=== PATIENT | female | born 1955 | race Caucasian/White ===

== ENCOUNTER → 2024-11-17 | Day surgery (SDC) | payer MEDICARE ==
--- NOTE | 2024-11-17 11:27 | RAD REPORT ---
EXAMINATION: ULTRASOUND GUIDED VACUUM-ASSISTED LEFT BREAST CORE NEEDLE BIOPSY LEFT breast core needle biopsy; percutaneous, using ultrasound guidance. Image guided placement, metallic localization clip, percutaneous. Post Bx mammogram: None CLINICAL INDICATION:. N63.20 INFORMED CONSENT: The risks, benefits, alternatives, and potential complications of ultrasound guided vacuum-assisted LEFT breast biopsy were discussed with the patient. An informed consent sheet was signed. The risks include but are not limited to the following: bleeding, infection, vascular injury, organ injury, pneumothorax, allergic reaction, and the need for emergent surgery/procedures. BIOPSY TARGET: LEFT breast, Lateral approach. 12:00 2 cm hypoechoic mass. NEEDLE: 12 gauge Celero vacuum-assisted core biopsy needle, 2 cores. SEDATION: None. COMPLICATIONS: None. TECHNIQUE: Appropriate audible time out was performed. The skin was prepped and draped in the normal fashion. The soft tissues were anesthetized with lidocaine. Utilizing real-time ultrasound guidance, a vacuum-assisted core biopsy needle was placed into the breast location described with rem oval of tissue for pathology evaluation. Metallic clip was placed within the biopsied lesion under ultrasound guidance. Compression was held. Hemostasis was achieved. Sterile dressing was applied. Pat ient tolerated the procedure well without immediate complication. The technologist was in the room with the radiologist throughout the procedure. IMPRESSION: 1.Successful ultrasound guided vacuum-assisted core biopsy of the LEFT breast as described above. 2. Biopsy clip placed within the biopsied lesion.
== END ==
LOC: DS 09:25
PROVIDERS: ATTEND Surgery
PROC: 0HBU3ZX Excision of Left Breast, Percutaneous Approach, Diagnostic (ICD-10-PCS; principal; 2024-11-17)
DX: C50.812 Malignant neoplasm of overlapping sites of left female breast (principal); Z17.0 Estrogen receptor positive status [ER+]
CPT/HCPCS: 19083; 88305

== ENCOUNTER 2024-12-07 05:38 | Day surgery (SDC) | payer MEDICARE ==
[2024-12-05 09:10] LABS: Absolute Eosinophils 0.2 K/uL (0-0.5); Absolute Lymphocytes (CBC) 2.2 K/uL (0.7-4.9); Absolute Monocytes 0.6 K/uL (0.1-1.3); Absolute Neutrophil 6.1 K/uL (1.8-8.0); Basophils % 0.4 % (0-1.3); Eosinophils % 1.7 % (0-4.4); Hematocrit 40.5 % (36.0-45.0); Hemoglobin 13.4 g/dL (12.0-15.0); Lymphocytes % 24.5 % (15.3-44.8); MCH 30.2 pg (27.0-35.0); MCHC 33.1 g/dL (32.0-36.0); MCV 91.1 fL (80-100); MPV 8.3 fL (7.6-11.3); Monocytes % 6.6 % (3.3-12.3); Neutrophils % 66.8 % (41.7-73.7); Nucleated Red Blood Cells % 0.1 % (0-0); Platelets 243 thou/uL (152-406); RBC Red Blood Cell Count 4.45 M/uL (3.86-4.86); Red Cell Distribution Width 14.3 % (12.1-15.2)
[2024-12-05 09:22] LABS: Anion Gap 5.2 mEq/L (5.0-15.0); Potassium 4.2 mEq/L (3.5-5.1)
--- NOTE | 2024-12-05 12:07 | EKG ---
Test Date: 2024-12-05 Test Time: 09:24:23 Sampler Pickup: RISHI MEASUREMENT RESULTS: Intervals: Rate: 59 WY: 152 QRSD: 88 QT: 424 QTc: 419 [place]: P: 59 WY: 152 QRS: -9 T: 47 INTERPRETIVE STATEMENTS: Sinus bradycardia RSR' or QR pattern in V1 suggests right ventricular conduction delay Borderline ECG No previous ECG available for comparison Electronically Signed On 12-05-24 12:07:09 MARKETING SENIOR RECRUITER by Wilmar Morris
[2024-12-07] MEDS: Ringers Lactate 1,000 ML IV ONE ×2 (07:18→14:30)
[2024-12-07] MEDS ORDERED: LIDOCAINE 2% MPF 5 ML VIAL ONE (11:29)
[2024-12-07] MEDS ORDERED: dexAMETHasone 10 MG/ML VIAL ONE (11:29)
[2024-12-07] MEDS ORDERED: KETOROLAC 30 MG/ML INJ ONE (11:29)
[2024-12-07] MEDS ORDERED: propofoL 200 MG/20 ML VIAL IV ONE (11:29)
[2024-12-07] MEDS ORDERED: MIDAZOLAM HCL 2 MG/2 ML INJ ONE (11:29)
[2024-12-07] MEDS ORDERED: ROCURONIUM 50 MG/5 ML VIAL IV ONE (11:29)
[2024-12-07] MEDS ORDERED: ONDANSETRON 4 MG/2 ML VIAL ONE (11:29)
[2024-12-07] MEDS ORDERED: FENTANYL CITR 100 MCG/2 ML ONE ×2 (11:29→12:48)
[2024-12-07] MEDS: CEFAZOLIN SODIUM 1 GM/VIAL ONE (12:00)
[2024-12-07] MEDS ORDERED: GLYCOPYRROLATE 0.2 MG/ML SYR ONE ×2 (12:20→12:25)
[2024-12-07] MEDS ORDERED: EPHEDRINE SULF 50 MG/ML VIAL ONE (12:21)
[2024-12-07] MEDS: METHYLENE BLUE 1% 10 ML VIAL ONE (12:30)
[2024-12-07] MEDS: LIDOCAINE HCL/EPINEPHRINE 20 ML MDV ONE (12:33)
[2024-12-07] MEDS ORDERED: HYDROMORPHONE HCL 1 MG/ML INJ ONE (15:41)
--- NOTE | 2024-12-07 17:35 | P.OP ---
Preoperative diagnosis: Biopsy Proven LEFT Breast Invasive Ductal Carcinoma Postoperative diagnosis: Biopsy Proven LEFT Breast Invasive Ductal Carcinoma Primary procedure: LEFT Mastectomy with sentinel lymph node biopsy and axillary dissection Anesthesia: GETA Estimated blood loss: <20cc Specimen: LEFT Breast, LEFT axillary sentinel lymph nodes x 2, LEFT Axillary Contents Findings: Postive LEFT Axillary Lymph Node, unusual course of thoracodorsal nerve Complications: None Drain(s): ANGELA drain (7mm Flat) Transferred to: Recovery Room Condition: Good
[2024-12-07] MEDS: HYDROMORPHONE HCL 1 MG/ML INJ ONE ×2 (17:57→18:07)
[2024-12-07 19:36] VITALS: BP 117/65; TEMP 97.2
[2024-12-07 19:45] VITALS: O2SAT 97
--- NOTE | 2024-12-08 02:56 | OP ---
Date of Procedure: 12/07/2024 Surgeon: Carlos Traylor MD, Preoperative Diagnosis: Biopsy-proven left breast invasive ductal carcinoma. Postoperative Diagnosis: Biopsy-proven left breast invasive ductal carcinoma. Procedures: 1. Left mastectomy with sentinel lymph node biopsy. 2. Left axillary dissection. Anesthesia: General endotracheal. Estimated Blood Loss: Less than 20 cc. Specimens: 1. Left breast. 2. Left axillary sentinel lymph node x2. 3. Left axillary contents. Findings: Positive left axillary lymph nodes on frozen section necessitating axillary dissection and unusual course of her thoracodorsal nerve. Complications: None. Drains: A 7 mm flat ANGELA drain placed. Condition: The patient was transferred recovery room in good condition. Procedure In Detail: After informed consent was obtained, the patient was brought to the operating r oom. The patient earlier in the morning was in Radiology department where lymphoscintigraphy was per formed as well as placement of wires as the patient had originally wanted a lumpectomy, but we later agreed on proceeding with a mastectomy on the left breast. As such, the patient had a wire placed as well as lymphoscintigraphy performed today. She was prepped and draped in the usual sterile fashion . After adequate anesthesia was achieved, I injected methylene blue in the periareolar region and th e breast was massaged for approximately 5 minutes to ensure lymphatic uptake of the methylene blue. At this point, I had parked the patient's breast in an elliptical-type fashion listing slightly super iorly toward where the tumor was palpable in the 12 o'clock position of the breast to ensure that the skin would be removed in this area that was adjacent to the mass. I also premarked her inferior axi llary fold midline and other axillary contents and borders as well as the superior border at the clav icle. I then made the elliptical incision circumferentially around as described. I began by develop ing a superior flap first taking down using electrocautery to the superior extent was smooth without significant blood loss. I ultimately went to the clavicle at the superior aspect that came around to the lateral edge of the sternal border and then proceeded inferiorly to develop the inferior flap wi th same said dissection leaving thin flaps in place down to the [place] fascia. I ultimately dissecte d down to the confluence of the inferior mammary crease near the rectus muscle pectoralis junction. I then went laterally near the lateral border of the pectoralis major and ultimately removed the spec imen at this point after orientation stitches were placed, which was short superior long lateral. Af ter this was passed off, I irrigated the chest wall. Minimal hemostatic was required as the breast w as removed all the way down to the prepectoral fascia. I then packed the breast area and inspected f or hemostasis once again, which was achieved at this point, no additional hemostatic measures require d. I then proceeded to close the defect using 3-0 Vicryl suture in the deep dermal plane. The skin was closed with a 4-0 Monocryl in a running fashion, Dermabond placed over top. I then turned my att ention to the axillary contents and using the gamma probe, I inspected the area. All counts were rec orded at this point. The skin level in vivo, ex vivo, and specimen levels were all performed at this time. After I identified the area of greatest intensity, I made an incision following the hair of bello blackmon hairline in the area of left axilla down to the subcutaneous tissues and performed predominate magalie nt dissection as well as minimal electrocautery ultimately identifying a blue hot lymph node, which w as inspected at this point. I placed clips on the lymphatic channels feeding this and ultimately rem makeda this and sent off for pathologic examination. I then inspected the axillary field and found an additional hot lymph node of similar intensity, which was interestingly not near the previous lymph n ode. It was more inferior and medial than this lymph node and deeper. As such, I dissected down to this lymph node in a similar fashion, placed clips on the lymphatic channel and removed this lymph no de, sent off for pathologic examination. At this point, the area was irrigated with sterile water an d I waited the results, which came back as positive for cancer by the pathologist frozen section anal ysis and therefore I opted to proceed with the axillary dissection as I had discussed with the patien t preoperatively. I ultimately began at the border of the pectoralis major muscle dissecting down to the pectoralis minor and pectoralis major junction and came around ultimately identifying the axilla ry vein. The axillary vein had a small bifurcation approximately midportion to the distal third of t neymar axillary vein. I identified the vascular structures coming down inferiorly including the thoracod orsal neurovascular bundle. At this point, I came medially and inspected the fascia and found that t he long thoracic nerve was in appropriate anatomic position. I used a nerve stimulator to test this nerve which was intact at this point. Interestingly, the thoracodorsal vein was identified. However , the thoracodorsal nerve came more medially and swung down in a somewhat oblique orientation to meet the thoracodorsal vein about a cm and a half away from the border of the axillary vein. Therefore, the thoracodorsal neurovascular bundle carried on this direction and made a somewhat C swoop back fol lowing the normal course after that moment. I then swept back all tissue using predominantly blunt d issection with minimal electrocautery at times. I used the nerve stimulator to protect and ensure no nerve injuries were appreciated throughout this portion of the procedure. I swept back all level 1 and [address] down and palpated level 3 nodes which were found to be nonpathologic in palpa tion. There were some firm lymph nodes palpated on the chest wall, which were removed in its entiret y. In addition, as I dissected laterally beyond the thoracodorsal neurovascular bundle, I palpated a single large lymph node just beyond the bifurcation of the axillary vein as described. This was carlos en out with meticulous dissection as well and sent off en bloc with the specimen as well connected. After I cleaned the axillary contents, I cleaned from the axillary vein superiorly to the chest wall and serratus/pectoralis muscle protecting the long thoracic nerve. I took out all the tissue all the way to the subscapularis muscle and to the latissimus dorsi and swept down ultimately removing all t his abnormal tissue and ligated this structures at this point using electrocautery or LigaSure device . I then sent it off for pathologic examination. Clips were left in place on the lymphatic channels as they were encountered and also to be used as fiducial markers on the areas of consideration. The re were 2 branch vessels off the axillary vein, which were individually ligated using clips and LigaS ure device. The thoracodorsal neurovascular bundle was protected throughout the entire procedure. I then at this point, irrigated the area and suctioned out to completely dry. No hemostatic measures required. I then used the nerve stimulator and tested the thoracodorsal nerve, which was found to be intact and functional as well as the long thoracic nerve at the end of the procedure. At this point , I brought out a 7 mm flat ANGELA drain through a separate stab incision inferior to the axilla and left the 7 mm ANGELA drain in the axilla. At this point, the area was copiously irrigated once again and dri ed appropriately and I then closed the deep dermal plane using interrupted 3-0 Vicryl sutures and ski n was closed with a 4-0 Monocryl in a running fashion. Dermabond placed over top. The patient shivani ated the procedure without incident or complication, transferred back in good condition. All counts were correct at the end of the case. ARMAND/SUSAN Voice ID: [id number] Report ID: [id number]
--- NOTE | 2024-12-08 07:36 | RAD REPORT ---
PROCEDURE: Lymphoscintigraphy of the left breast HISTORY: left breast sentinel lymph node biopsy AGENT: 275 uCi of LymphAMDLek. TECHNIQUE: The breast was prepped with alcohol in the periareolar region. The radiopharmaceutical was injected i n the left breast. Immediate imaging shows good radiopharmaceutical localization. IMPRESSION: Technically successful left lymphoscintigraphy injections as detailed.
--- NOTE | 2024-12-08 07:49 | RAD REPORT ---
Brst,Preop NL Wire Init w/Guid CLINICAL INDICATION: Female 69 years old. BREAST MASS,NEEDLE LOC INFORMED CONSENT: The risk, benefits, alternatives and potential complications of sonographically wendy ded breast needle localization were discussed with the patient. An informed consent sheer was signed. The risks include but are not limited to the following: bleeding, infection, vascular injury, organ injury, pneumothorax, allergic reaction, and the need for emergent surgery/procedures, needle dislocation. [id number]. SEDATION: None LOCALIZATION SITE: Left breast mass at 12:00 approximately 2 finger breadths from nipple WIRE: 5 cm Kopans wire needle localization device, Lateral approach. COMPLICATION: None. FINDINGS: Appropriate audible time out was performed. The skin was prepped in the normal fashion. The soft tissues were anesthetized with lidocaine. Utilizing ultrasound guidance, a localization device was placed into the location described above. The localization device was deposited at the holly ropriate site in the Left breast as described above. Dressing was applied after the procedure. The patient tolerated the procedure well without immediate complication. IMPRESSION: Successful placement of Left breast localizer device as described above. Specimen radiograph is rishabh mmended
--- NOTE | 2024-12-08 07:50 | RAD REPORT ---
Breast Pre Op Wire Additional CLINICAL INDICATION: Female 69 years old. NDL LOC 2 INFORMED CONSENT: The risk, benefits, alternatives and potential complications of sonographically wendy ded breast needle localization were discussed with the patient. An informed consent sheer was signed. The risks include but are not limited to the following: bleeding, infection, vascular injury, organ injury, pneumothorax, allergic reaction, and the need for emergent surgery/procedures, needle dislocation. [id number]. SEDATION: None. LOCALIZATION SITE: Left breast lesion at approximately 12:00 but one finger breadths from the nipple. WIRE: 7 cm Kopans wire needle localization device, Lateral approach. COMPLICATION: None. FINDINGS: Appropriate audible time out was performed. The skin was prepped in the normal fashion. The soft tissues were anesthetized with lidocaine. Utilizing ultrasound guidance, a localization device was placed into the location described above. The localization device was deposited at the holly ropriate site in the Left breast as described above. Dressing was applied after the procedure. The patient tolerated the procedure well without immediate complication. IMPRESSION: Successful placement of Left breast localizer device as described above. Specimen radiograph is rishabh mmended
== END 2024-12-07 19:49 | disposition home or self-care (01) ==
LOC: OR 05:38
PROVIDERS: ATTEND Surgery
PROC: 07T60ZZ Resection of Left Axillary Lymphatic, Open Approach (ICD-10-PCS; 2024-12-07)
PROC: 0HTU0ZZ Resection of Left Breast, Open Approach (ICD-10-PCS; principal; 2024-12-07 12:00)
DX: C50.912 Malignant neoplasm of unspecified site of left female breast (principal); C77.3 Secondary and unspecified malignant neoplasm of axilla and upper limb lymph nodes; Z17.0 Estrogen receptor positive status [ER+]
CPT/HCPCS: 19307; 93005; 85025; 80048; 36415; 88331; 88332; 88307 ×2; 19286; 19285; 78195; J2704; J2003; J2250; J3010 ×2; J1100; J1171 ×3; J2405; J7120 ×2; J0690; A9520; 88333; 88334

== ENCOUNTER 2025-01-04 11:37 | Day surgery (SDC) | payer MEDICARE ==
[2025-01-04 11:49] LABS: Absolute Eosinophils 0.1 K/uL (0-0.5); Absolute Lymphocytes (CBC) 2.3 K/uL (0.7-4.9); Absolute Monocytes 0.6 K/uL (0.1-1.3); Basophils % 0.3 % (0-1.3); Hemoglobin 12.8 g/dL (12.0-15.0); Lymphocytes % 25.7 % (15.3-44.8); MCH 30.4 pg (27.0-35.0); MCHC 33.8 g/dL (32.0-36.0); MCV 89.9 fL (80-100); MPV 7.9 fL (7.6-11.3); Monocytes % 6.7 % (3.3-12.3); Neutrophils % 66.3 % (41.7-73.7); Platelets 237 thou/uL (152-406); RBC Red Blood Cell Count 4.23 M/uL (3.86-4.86); Red Cell Distribution Width 13.8 % (12.1-15.2)
[2025-01-04 12:00] LABS: Anion Gap 7.2 mEq/L (5.0-15.0); Potassium 4.2 mEq/L (3.5-5.1)
[2025-01-04] MEDS: Ringers Lactate 1,000 ML IV ONE (12:50)
[2025-01-04] MEDS ORDERED: propofoL 200 MG/20 ML VIAL IV ONE (13:18)
[2025-01-04] MEDS ORDERED: LIDOCAINE 2% MPF 5 ML VIAL ONE (13:18)
[2025-01-04] MEDS ORDERED: ONDANSETRON 4 MG/2 ML VIAL ONE (13:18)
[2025-01-04] MEDS ORDERED: MIDAZOLAM HCL 2 MG/2 ML INJ ONE (13:19)
[2025-01-04] MEDS ORDERED: FENTANYL CITR 100 MCG/2 ML ONE (13:19)
[2025-01-04] MEDS ORDERED: NS 0.9% VIAL 20 ML ONE (13:21)
[2025-01-04] MEDS: CEFAZOLIN SODIUM 2 GM/VIAL ONE (13:30)
[2025-01-04] MEDS: LIDOCAINE HCL/EPINEPHRINE 20 ML MDV ONE (14:06)
[2025-01-04] MEDS: HEPARIN 5000 UNIT/ML 1 ML VIAL ONE (14:07)
[2025-01-04] MEDS: NA CHLORIDE 0.9% 50 ML ONE (14:08)
[2025-01-04] MEDS ORDERED: EPHEDRINE SULF 50 MG/ML VIAL ONE (14:10)
--- NOTE | 2025-01-04 14:33 | RAD REPORT ---
EXAM: Fluoroscopy use, Fluoroscopy <1 Hour HISTORY: PORT A CATH PLACEMENT COMPARISON: None FINDINGS: Multiple images were sent to PACS, during a fluoroscopically guided procedure. No radiologi st was involved in protocoling or performance of the study, and no radiologist was present for the duration of the procedure. No interpretation of the saved images will be provided. Total fluoroscopy time: 0.1 min. IMPRESSION: Documentation of fluoroscopy use as above. Transcribed Date/Time: 01/04/2025 2:33 PM
--- NOTE | 2025-01-04 14:33 | P.OP ---
Preoperative diagnosis: Need for Chemotherapy Access Postoperative diagnosis: Need for Chemotherapy Access Primary procedure: Placement of Chemotherapy Port Secondary procedure: Ultrasound and Flouroscopic Guidance Used Anesthesia: GETA + Local Estimated blood loss: <10cc Specimen: None Findings: Cath @ SVC Complications: None Implants: Port a Cath Transferred to: Recovery Room Condition: Good
[2025-01-04] MEDS: HYDROMORPHONE HCL 0.5 MG/0.5 ML INJ ONE (14:54)
--- NOTE | 2025-01-04 15:06 | RAD REPORT ---
EXAMINATION: ONE VIEW CHEST XR CLINICAL INDICATION: Female, 69 years old.,s/p port a cath placement TECHNIQUE: Frontal chest projection is submitted. Examination is limited by patient positioning and t echnique. COMPARISON: 12/21/2024 FINDINGS: Streaky predominantly medial bibasilar opacities, may reflect atelectasis or early airspace disease. Right chest wall Port-A-Cath in place, with catheter tip in the deep right atrium on both inspiratory and expiratory views. No pneumothorax or sizable effusion. The heart is normal in size. Mediastinal contours are unremarkable. IMPRESSION: Right chest wall Port-A-Cath with tip in the deep right atrium as above. The finding was discussed wi Dr. Traylor. Streaky bibasilar airspace opacities may reflect atelectasis or early airspace disease.
--- NOTE | 2025-01-04 15:37 | OP ---
Date of Procedure: 01/04/2025 Surgeon: Carlos Traylor MD, Preoperative Diagnosis: Need for chemotherapy access. Postoperative Diagnosis: Need for chemotherapy access. Procedure Performed: Placement of a chemotherapy port/Port-A-Cath using ultrasound fluoroscopic guid ance utilized. Anesthesia: General endotracheal plus local 1% lidocaine. Estimated Blood Loss: Less than 10 cc. Specimen: None. Findings: Catheter at the confluence of the superior vena cava. Complications: None. Implants: Port-A-Cath. Disposition: The patient was transferred to recovery room in good condition. Procedure In Detail: After informed consent was obtained, the patient was brought to the operating r oom, prepped and draped in the usual sterile fashion. After adequate anesthesia was achieved, the pa tient was placed in steep Trendelenburg position. Ultrasound was used to interrogate the right inter nal jugular vein which was found to be of adequate size. At this point, I cannulated the right inter nal jugular vein on the first attempt with a micro needle. At this point, micro wire was advanced af ter dark red nonpulsatile blood was returned. Fluoroscopy confirmed the position of the wire in the right atrium. At this point, I placed a emre incision overlying the insertion site and then placed t he microintroducer sheath in place. At this point, I then pulled the micro wire out. Micro wire was found to be out on the back table. I ultimately advanced the standard wire at this point and confir med position once again with fluoroscopic guidance. At this point, I secured the catheter wire and f ound a spot on the chest at the infraclavicular position after appropriately anesthetizing the skin f or placement of subcutaneous port, anesthetized the skin and the entire tract leading up to the inser tion site, made a emre incision overlying the chest wall on the right side. I then removed adipose t issue to allow for prepectoral fascia to be exposed. I then placed the tunneling device up through t he port site to the insertion site and the tubing remained in place at this point. I then placed int roducer sheath using Seldinger technique over the wire, removed the wire at this point and found the catheter to be in good position. I sized it appropriately using fluoroscopic guidance and removed th e introducer sheath at this point leaving clamps in place on the catheter. I trimmed the catheter ap propriately, placed a lock collar on, and secured to the subcutaneous port, flushed quite easily at t his point, and the lock collar was secured at this point. I then secured it to the chest wall using interrupted 3-0 Prolene sutures circumferentially around and flushed the port with saline at this poi nt and heparin super flushed quite easily. A final x-ray was taken. The patient tolerated this quit e well. At this point, I then irrigated all the insertion sites as well as the port site and closed the port site using interrupted 3-0 Vicryl suture in deep dermal plane. Skin was closed with a 4-0 M onocryl in a running fashion. Dermabond placed over top. I then turned my attention to the right ju gular insertion site and closed it using interrupted 3-0 nylon suture and a sterile dressing placed o esme top. The patient tolerated the procedure well without incident or complication, transferred to P ACU in good condition. All counts correct at end of case. ARMAND/SANDOVALL Voice ID: [id number] Report ID: [id number]
[2025-01-04] MEDS: HYDROCODONE/APAP 5/325 MG TAB ONE (16:00)
[2025-01-04 16:51] VITALS: TEMP 97.6
[2025-01-04 16:55] VITALS: BP 127/64
[2025-01-04 16:59] VITALS: O2SAT 96
== END 2025-01-04 16:35 | disposition home or self-care (01) ==
LOC: OR 11:37
PROVIDERS: ATTEND Surgery
PROC: 0JH60WZ Insertion of Totally Implantable Vascular Access Device into Chest Subcutaneous Tissue and Fascia, Open Approach (ICD-10-PCS; principal; 2025-01-04 14:15)
DX: C50.912 Malignant neoplasm of unspecified site of left female breast (principal)
CPT/HCPCS: 93005; 85025; 80048; 36415; 71045; 36561; J1644 ×2; A4216; J2704; J2003; J2250; J3010; J1171; J2405; J7120; C1788; 76000